=== PATIENT | male | born 1955 | race African-American/Black ===

== ENCOUNTER 2017-11-19 19:10 | Inpatient (IN) | payer OTHER ==
[2017-11-19 20:17] VITALS: BMI 24.3
--- NOTE | 2017-11-19 20:52 | HP ---
CIWA Score - CIWA Score Nausea/Vomitin Muscle Tremors: 5 Anxiety: 3 Agitation: 1-Slight > Activity Paroxysmal Sweats: 3 Orientation: 2-Disoriented Date<2 days Tacttile Disturbances: 1-Very Mild Itch/Numbness Auditory Disturbances: 2-Mild Harshness/Frighten Visual Disturbances: 2-Mild Sensitivity (8/10 headache) Headache: 4-Moderately Severe CIWA-Ar Total Score: 26 Admission ROS S - HPI Chief Complaint: withdrawal symptoms History of Present Illness: 62 yo male with hx of alcohol dependence is here for detox. PMHX: HTN, Depression and Schizophrenia. Currently denies suicidal / homicidal ideation, reports suicide attempt in 2013. Longest period of sobriety 8 years. Last detox [facility] one year ago. Exam Limitations: No Limitations - Ebola screening Have you traveled outside of the country in the last 21 days: No (N) Have you had contact with anyone from an Ebola affected area: No Have you been sick,other than usual withdrawal symptoms: No Do you have a fever: No - Review of Systems Constitutional: Chills, Loss of Appetite, Changes in sleep, Unintentional Wgt. Loss (reports 20 lbs in the past two months) EENT: reports: No Symptoms Reported, Other (wears glasses) Respiratory: reports: No Symptoms reported Cardiac: reports: Lightheadedness GI: reports: Constipated (last BM yesterday), Poor Appetite, Poor Fluid Intake, Abdominal cramping : reports: Urgency Musculoskeletal: reports: No Symptoms Reported Integumentary: reports: No Symptoms Reported Neuro: reports: Seizure (past hx of seizure currently not medicated. Last seizure 8 months ago as well the last time he took medication. Reports seizure are d/t head trauma from falling down the steps as a child.), Dizziness Endocrine: reports: Intolerance to Cold, Change in Weight Hematology: reports: No Symptoms Reported Psychiatric: reports: Orientated x3, Anxious, Depressed, other (see HPI) Other Systems: Reviewed and Negative Patient History - Patient Medical History Hx Anemia: No Hx Asthma: No Hx Chronic Obstructive Pulmonary Disease (COPD): No Hx Cancer: No Hx Cardiac Disorders: Yes (CA three months ago ) Hx Congestive Heart Failure: No Hx Hypertension: Yes (on meds ) Hx Hypercholesterolemia: No Hx Pacemaker: No HX Cerebrovascular Accident: No Hx Seizures: Yes (last sezuire 8 months ago ) Hx Dementia: No Hx Diabetes: No Hx Gastrointestinal Disorders: No Hx Liver Disease: No Hx Genitourinary Disorders: No Hx Sexually Transmitted Disorders: Yes (Gonorrhea and treated ) Hx Renal Disease (ESRD): No Hx Thyroid Disease: No Hx Human Immunodeficiency Virus (HIV): No Hx Hepatitis C: No Hx Depression: Yes Hx Suicide Attempt: Yes (2012) Hx Bipolar Disorder: No Hx Schizophrenia: Yes - Patient Surgical History Past Surgical History: Yes Hx Neurologic Surgery: No Hx Cataract Extraction: No Hx Cardiac Surgery: No Hx Lung Surgery: No Hx Breast Surgery: No Hx Breast Biopsy: No Hx Abdominal Surgery: No Hx Appendectomy: No Hx Cholecystectomy: No Hx Genitourinary Surgery: No Hx Orthopedic Surgery: Yes (blt leg fx repair d/t falling out a window 8 years ago ) Anesthesia Reaction: No - PPD History Previous Implant?: Yes Documented Results: Negative w/o proof PPD to be Administered?: Yes - Reproductive History Patient is a Female of Child Bearing Age (11 -55 yrs old): No - Smoking Cessation Smoking history: Former smoker Have you smoked in the past 12 months: No Aproximately how many cigarettes per day: 0 If you are a former smoker, when did you quit?: quit when 18 yo Hx Chewing Tobacco Use: No Initiated information on smoking cessation: No - Substance & Tx. History Hx Alcohol Use: Yes Hx Substance Use: Yes Substance Use Type: Alcohol Hx Substance Use Treatment: Yes ([facility] 1 year ago ) - Substances Abused Alcohol Route: Oral Frequency: Daily Amount used: 1 case of beer ( 24 beers) / 1 litter of vodka Age of first use: 9 Date of Last Use: 11/19/17 (10AM ) Family Disease History - Family Disease History Family Disease History: Other: Father (dec, alcoholism ), Mother (dec, cocaine / crack abuse ) Admission Physical Exam BHS - Vital Signs Vital Signs: Vital Signs - 24 hr 11/19/17 20:15 Temperature 97.1 F L Pulse Rate 92 H Respiratory 18 Rate Blood Pressure 126/84 - Physical General Appearance: Yes: Disheveled, Mild Distress, Thin, Tremorous, Anxious HEENTM: Yes: Within Normal Limits, EOMI, Hearing grossly Normal, Normal ENT Inspection, Normocephalic, Normal Voice, JOVI, Pharynx Normal, Tm's normal, Other (missing top teeth, poor dentation) Respiratory: Yes: Chest Non-Tender, Lungs Clear, Normal Breath Sounds, No Respiratory Distress, No Accessory Muscle Use Neck: Yes: No masses,lesions,Nodules, Trachea in good position Breast: Yes: Breast Exam Deferred Cardiology: Yes: Regular Rhythm, Regular Rate, S1, S2, Murmur Abdominal: Yes: Normal Bowel Sounds, Non Tender, Soft, Protuberent Genitourinary: Yes: Uregency Back: Yes: Normal Inspection Musculoskeletal: Yes: full range of Motion, Gait Steady, Pelvis Stable Extremities: Yes: Normal Capillary Refill, Normal Range of Motion, Non-Tender, Coldness Neurological: Yes: security compliance engineer II-XII NML intact, Fully Oriented, Motor Strength 5/5, Normal Response, Depressed Affect, Other (anxious) Integumentary: Yes: Dry, Warm, Other (ashen) Lymphatic: Yes: Within Normal Limits - Diagnostic (1) Alcohol dependence with withdrawal Current Visit: Yes Status: Acute Qualifiers: Complication of substance-induced condition: uncomplicated Qualified Code(s ): F10.230 - Alcohol dependence with withdrawal, uncomplicated (2) Essential (primary) hypertension Current Visit: Yes Status: Chronic (3) History of CA (myocardial infarction) Current Visit: Yes Status: Chronic (4) Psychotic disorder Current Visit: Yes Status: Chronic Qualifiers: Psychosis type: unspecified psychosis type Qualified Code(s): F29 - Unspecified psychosis not due to a substance or known physiological condition (5) Anxious mood Current Visit: Yes Status: Acute (6) Dehydration Current Visit: Yes Status: Acute Cleared for Admission [facility] - Detox or Rehab [facility] Level of Care: Medically Managed Detox Regimen/Protocol: Librium [facility] Breath Alcohol Content Breath Alcohol Content: 0.258 Urine Drug Screen - Results Drug Screen Negative: Yes
[2017-11-19] MEDS ORDERED: chlordiazePOXIDE HCL 25 MG CAPSULE PO PRN (21:21)
[2017-11-19] MEDS ORDERED: ACETAMINOPHEN 325 MG TABLET (FP) PO PRN (21:21)
[2017-11-19] MEDS ORDERED: hydrOXYzine PAMOATE 50 MG CAPSULE (FP) PO PRN (21:21)
[2017-11-19] MEDS ORDERED: P-EPHED 60MG/TRIPROLIDI 2.5MG TABLET PO PRN (21:21)
[2017-11-19] MEDS ORDERED: MENTHOL/PHENOL 1 EACH UD MM PRN (21:21)
[2017-11-19] MEDS ORDERED: chlordiazePOXIDE HCL 25 MG CAPSULE PO ONE (21:21)
[2017-11-19] MEDS ORDERED: guaiFENesin/D-METHORPHAN HB 10 ML UNIT-DOSE CUPS PO PRN (21:21)
[2017-11-19] MEDS ORDERED: IBUPROFEN 400 MG TABLET (FP) PO PRN (21:21)
[2017-11-19] MEDS ORDERED: LOPERAMIDE HCL 2 MG CAPSULE PO PRN (21:21)
[2017-11-19] MEDS ORDERED: MAG HYDROX/AL HYDROX/SIMETH 30 ML UNIT-DOSE CUP PO PRN (21:21)
[2017-11-19] MEDS ORDERED: MAGNESIUM CITRATE 300 ML BOTTLE PO PRN (21:21)
[2017-11-19] MEDS ORDERED: MAGNESIUM HYDROX 2400MG/30ML ORAL SUSPENSION 30 ML CUP PO PRN (21:21)
[2017-11-19] MEDS: THIAMINE HCL 100 MG TABLET (FP) PO SCH (22:58)
[2017-11-19] MEDS: chlordiazePOXIDE HCL 25 MG CAPSULE PO SCH (23:03)
[2017-11-19 23:27] LABS: URINE APPEARANCE CLEAR; URINE BILIRUBIN NEGATIVE (NEGATIVE); URINE BLOOD NEGATIVE (NEGATIVE); URINE COLOR LTYELLOW; URINE GLUCOSE (UA) NEGATIVE (NEGATIVE); URINE KETONE NEGATIVE (NEGATIVE); URINE LEUK ESTERASE NEGATIVE (NEGATIVE); URINE NITRITE NEGATIVE (NEGATIVE); URINE PROTEIN NEGATIVE (NEGATIVE); URINE UROBILINOGEN NEGATIVE mg/dL (0.2-1.0)
[2017-11-20] MEDS: chlordiazePOXIDE HCL 25 MG CAPSULE PO SCH ×4 (05:11→22:45)
[2017-11-20] MEDS: PRENATAL VITAMINS W/ FOLIC ACID TABLET (FP) PO SCH (10:10)
[2017-11-20 10:25] LABS: HEMATOCRIT 40.7 % (35.4-49); HEMOGLOBIN 13.5 GM/dL (11.7-16.9); MCH 29.6 pg (25.7-33.7); MEAN CELL VOLUME 89.6 fl (80-96); MEAN PLT VOLUME 9.3 fl (7.5-11.1); PLATELET COUNT 147 K/MM3 (134-434); RBC 4.54 M/mm3 (4.00-5.60); RDW 18.1 % (11.9-15.9); WHITE BLOOD COUNT 4.1 K/mm3 (4.0-10.0)
[2017-11-20 10:33] LABS: ALBUMIN 3.3 g/dl (3.4-5.0); ANION GAP 5 (8-16); BILIRUBIN,TOTAL 1.1 mg/dL (0.2-1.0); BLOOD UREA NITROGEN 8 mg/dL (7-18); CALCIUM 8.2 mg/dL (8.5-10.1); CHLORIDE 106 mmol/L (98-107); CO2 31 mmol/L (21-32); CREATININE 0.8 mg/dL (0.7-1.3); GLUCOSE,RANDOM 82 mg/dL (74-106); POTASSIUM 3.9 mmol/L (3.5-5.1); SGOT/AST 37 U/L (15-37); SGPT/ALT 35 U/L (12-78); SODIUM 142 mmol/L (136-145); TOT PROT 6.6 g/dl (6.4-8.2)
[2017-11-20 10:34] LABS: ALK PHOS 97 U/L (45-117)
--- NOTE | 2017-11-20 10:40 | PN ---
S CIWA - CIWA Score Nausea/Vomitin-Mild Nausea/No Vomiting Muscle Tremors: 4-Moderate,w/Arms Extend Anxiety: 4-Mod. Anxious/Guarded Agitation: 4-Moderately Restless Paroxysmal Sweats: 1-Minimal Palms Moist Orientation: 3-Disoriented Date>2 days Tacttile Disturbances: 1-Very Mild Itch/Numbness Auditory Disturbances: 0-None Visual Disturbances: 0-None Headache: 2-Mild CIWA-Ar Total Score: 20 BHS Progress Note (SOAP) Subjective: sweat tremor anxiety irritable agitation GI upset Objective: 11/20/17 10:39 Vital Signs Temperature 97.9 F 11/20/17 10:02 Pulse Rate 81 11/20/17 10:02 Respiratory Rate 20 11/20/17 10:02 Blood Pressure 132/66 11/20/17 10:02 O2 Sat by Pulse Oximetry (%) Laboratory Last Values WBC 4.1 K/mm3 (4.0-10.0) 11/20/17 07:30 RBC 4.54 M/mm3 (4.00-5.60) 11/20/17 07:30 Hgb 13.5 GM/dL (11.7-16.9) 11/20/17 07:30 Hct 40.7 % (35.4-49) 11/20/17 07:30 MCV 89.6 fl (80-96) 11/20/17 07:30 MCH 29.6 pg (25.7-33.7) 11/20/17 07:30 MCHC 33.0 g/dl (32.0-35.9) 11/20/17 07:30 RDW 18.1 % (11.9-15.9) H 11/20/17 07:30 Plt Count 147 K/MM3 (134-434) 11/20/17 07:30 MPV 9.3 fl (7.5-11.1) 11/20/17 07:30 Urine Color Ltyellow 11/19/17 22:00 Urine Appearance Clear 11/19/17 22:00 Urine pH 5.0 (5.0-8.0) 11/19/17 22:00 Ur Specific [place] 1.010 (1.001-1.035) 11/19/17 22:00 Urine Protein Negative (NEGATIVE) 11/19/17 22:00 Urine Glucose (UA) Negative (NEGATIVE) 11/19/17 22:00 Urine Ketones Negative (NEGATIVE) 11/19/17 22:00 Urine Blood Negative (NEGATIVE) 11/19/17 22:00 Urine Nitrite Negative (NEGATIVE) 11/19/17 22:00 Urine Bilirubin Negative (NEGATIVE) 11/19/17 22:00 Urine Urobilinogen Negative mg/dL (0.2-1.0) 11/19/17 22:00 Ur Leukocyte Esterase Negative (NEGATIVE) 11/19/17 22:00 lab noted Assessment: 11/20/17 10:39 withdrawal sx Plan: continue detox
--- NOTE | 2017-11-20 10:55 | EKG ---
Test Reason : Blood Pressure : / mmHG Vent. Rate : 079 BPM Atrial Rate : 079 BPM P-R Int : 160 ms QRS Dur : 086 ms QT Int : 380 ms P-R-T Axes : 072 -08 056 degrees QTc Int : 435 ms NORMAL SINUS RHYTHM NORMAL ECG NO PREVIOUS ECGS AVAILABLE Confirmed by HANY IYER, PEREZ ([id number]) on 11/20/2017 10:54:51 AM Referred By: Confirmed By:PEREZ LEACH MD
[2017-11-20] MEDS: levETIRAcetam 500 MG TABLET (FP) PO SCH ×2 (11:19→22:44)
[2017-11-20 11:23] LABS: SICKLE CELL SCREEN POSITIVE (NEGATIVE)
--- NOTE | 2017-11-20 11:45 | CONSULT ---
[facility] Psychiatric Consult - Data Date of interview: 11/20/17 Admission source: [facility] Identifying data: This is 62 years old male with psychiatric hospitalization history inmtoxicated with: Alcohol Substance Abuse History: - Smoking Cessation. Smoking history: Former smoker. Have you smoked in the past 12 months: No. Aproximately how many cigarettes per day: 0. If you are a former smoker, when did you quit?: quit when 18 yo. Hx Chewing Tobacco Use: No. Initiated information on smoking cessation: No. - Substance & Tx. History. Hx Alcohol Use: Yes. Hx Substance Use: Yes. Substance Use Type: Alcohol. Hx Substance Use Treatment: Yes ([facility] 1 year ago ). - Substances Abused. Alcohol. Route: Oral. Frequency: Daily. Amount used: 1 case of beer ( 24 beers) / 1 litter of vodka. Age of first use : 9. Date of Last Use: 11/19/17 (10AM ) Medical History: HTN, Hisotry of [place] Psychiatric History: Patient reports history of depression and anxiety, reports taking prior to admission: Zoloft 100mg poqd. Seroquel 100mg po qhs Physical/Sexual Abuse/Trauma History: Denies Additional Comment: Zoloft 100mg poqd. Seroquel 100mg po qhs Mental Status Exam - Mental Status Exam Alert and Oriented to: Person Cognitive Function: Fair Patient Appearance: Unkempt Mood: Apprehensive Affect: Mood Congruent Patient Behavior: Cooperative Speech Pattern: Delayed Voice Loudness: Normal Thought Process: Goal Oriented Thought Disorder: Being Controlled Hallucinations: Denies Suicidal Ideation: Denies Homicidal Ideation: Denies Insight/Judgement: Fair Sleep: Difficulty falling asleep Appetite: Fair Muscle strength/Tone: Mild Hypotonicity Gait/Station: Normal Additional Comments: Zoloft 100mg poqd. Seroquel 100mg po qhs Psychiatric Findings - Problem List ([place] 1, 2,3) (1) Alcohol-induced mood disorder Current Visit: Yes Status: Acute (2) Alcohol dependence with withdrawal Current Visit: Yes Status: Acute Qualifiers: Complication of substance-induced condition: uncomplicated Qualified Code(s ): F10.230 - Alcohol dependence with withdrawal, uncomplicated - Initial Treatment Plan Initial Treatment Plan: Zoloft 100mg poqd. Seroquel 100mg po qhs
[2017-11-20] MEDS: SERTRALINE HCL 50 MG TABLET (FP) PO SCH (14:45)
[2017-11-20] MEDS: RANITIDINE HCL 150 MG TABLET (FP) PO SCH (22:44)
[2017-11-20] MEDS: QUEtiapine FUMARATE 100 MG TABLET (FP) PO SCH (22:44)
[2017-11-20] MEDS: THIAMINE HCL 100 MG TABLET (FP) PO SCH (22:44)
[2017-11-21] MEDS: chlordiazePOXIDE HCL 25 MG CAPSULE PO SCH ×3 (05:10→17:15)
[2017-11-21] MEDS: RANITIDINE HCL 150 MG TABLET (FP) PO SCH ×2 (10:09→22:32)
[2017-11-21] MEDS: levETIRAcetam 500 MG TABLET (FP) PO SCH ×2 (10:09→22:33)
[2017-11-21] MEDS: SERTRALINE HCL 50 MG TABLET (FP) PO SCH (10:09)
[2017-11-21] MEDS: NIFEdipine E.R. 30 MG TABLET (FP) PO SCH (10:10)
[2017-11-21] MEDS: PRENATAL VITAMINS W/ FOLIC ACID TABLET (FP) PO SCH (10:10)
--- NOTE | 2017-11-21 10:41 | PN ---
[facility] CIWA - CIWA Score Nausea/Vomitin-Mild Nausea/No Vomiting Muscle Tremors: 4-Moderate,w/Arms Extend Anxiety: 4-Mod. Anxious/Guarded Agitation: 4-Moderately Restless Paroxysmal Sweats: 1-Minimal Palms Moist Orientation: 0-Oriented Tacttile Disturbances: 0-None Auditory Disturbances: 0-None Visual Disturbances: 0-None Headache: 0-None Present CIWA-Ar Total Score: 14 BHS Progress Note (SOAP) Subjective: sweat tremor anxiety irritable Objective: 11/21/17 10:40 Vital Signs Temperature 97.2 F L 11/21/17 10:13 Pulse Rate 97 H 11/21/17 10:13 Respiratory Rate 16 11/21/17 10:13 Blood Pressure 128/66 11/21/17 10:13 O2 Sat by Pulse Oximetry (%) Laboratory Last Values WBC 4.1 K/mm3 (4.0-10.0) 11/20/17 07:30 RBC 4.54 M/mm3 (4.00-5.60) 11/20/17 07:30 Hgb 13.5 GM/dL (11.7-16.9) 11/20/17 07:30 Hct 40.7 % (35.4-49) 11/20/17 07:30 MCV 89.6 fl (80-96) 11/20/17 07:30 MCH 29.6 pg (25.7-33.7) 11/20/17 07:30 MCHC 33.0 g/dl (32.0-35.9) 11/20/17 07:30 RDW 18.1 % (11.9-15.9) H 11/20/17 07:30 Plt Count 147 K/MM3 (134-434) 11/20/17 07:30 MPV 9.3 fl (7.5-11.1) 11/20/17 07:30 Sickle Cell Screen Positive (NEGATIVE) 11/20/17 07:30 Sodium 142 mmol/L (136-145) 11/20/17 07:30 Potassium 3.9 mmol/L (3.5-5.1) 11/20/17 07:30 Chloride 106 mmol/L (98-107) 11/20/17 07:30 Carbon Dioxide 31 mmol/L (21-32) 02/07/18 07:30 Anion Gap 5 (8-16) L 11/20/17 07:30 BUN 8 mg/dL (7-18) 11/20/17 07:30 Creatinine 0.8 mg/dL (0.7-1.3) 11/20/17 07:30 Creat Clearance w eGFR > 60 (>60) 11/20/17 07:30 Random Glucose 82 mg/dL (74-106) 11/20/17 07:30 Calcium 8.2 mg/dL (8.5-10.1) L 11/20/17 07:30 Total Bilirubin 1.1 mg/dL (0.2-1.0) H 11/20/17 07:30 AST 37 U/L (15-37) 11/20/17 07:30 ALT 35 U/L (12-78) 11/20/17 07:30 Alkaline Phosphatase 97 U/L (45-117) 11/20/17 07:30 Total Protein 6.6 g/dl (6.4-8.2) 11/20/17 07:30 Albumin 3.3 g/dl (3.4-5.0) L 11/20/17 07:30 Urine Color Ltyellow 11/19/17 22:00 Urine Appearance Clear 11/19/17 22:00 Urine pH 5.0 (5.0-8.0) 11/19/17 22:00 Ur Specific [place] 1.010 (1.001-1.035) 11/19/17 22:00 Urine Protein Negative (NEGATIVE) 11/19/17 22:00 Urine Glucose (UA) Negative (NEGATIVE) 11/19/17 22:00 Urine Ketones Negative (NEGATIVE) 11/19/17 22:00 Urine Blood Negative (NEGATIVE) 11/19/17 22:00 Urine Nitrite Negative (NEGATIVE) 11/19/17 22:00 Urine Bilirubin Negative (NEGATIVE) 11/19/17 22:00 Urine Urobilinogen Negative mg/dL (0.2-1.0) 11/19/17 22:00 Ur Leukocyte Esterase Negative (NEGATIVE) 11/19/17 22:00 RPR Titer Nonreactive (NONREACTIVE) 11/20/17 07:30 Hepatitis C Antibody 0.2 s/co ratio (0.0-0.9) 11/19/17 07:30 HIV 1&2 Antibody Screen Negative 11/19/17 07:30 HIV P24 Antigen Negative 11/19/17 07:30 lab noted Assessment: 11/21/17 10:40 withdrawal sx Plan: continue detox
[2017-11-21] MEDS: THIAMINE HCL 100 MG TABLET (FP) PO SCH (22:31)
[2017-11-21] MEDS: chlordiazePOXIDE 5 MG CAPSULE PO SCH (22:32)
[2017-11-21] MEDS: QUEtiapine FUMARATE 100 MG TABLET (FP) PO SCH (22:33)
[2017-11-22] MEDS: chlordiazePOXIDE 5 MG CAPSULE PO SCH ×3 (07:12→17:17)
--- NOTE | 2017-11-22 10:00 | PN ---
[facility] Progress Note (SOAP) Subjective: irritable sweats Objective: 11/22/17 09:52 Vital Signs Temperature 98.6 F 11/22/17 06:07 Pulse Rate 67 11/22/17 06:07 Respiratory Rate 16 11/22/17 06:07 Blood Pressure 116/66 11/22/17 06:07 O2 Sat by Pulse Oximetry (%) aaox3 ambulating no acute distress Assessment: 11/22/17 10:00 mild withdrawal sx Plan: continue detox increase fluids d/c in am
[2017-11-22] MEDS: PRENATAL VITAMINS W/ FOLIC ACID TABLET (FP) PO SCH (11:51)
[2017-11-22] MEDS: SERTRALINE HCL 50 MG TABLET (FP) PO SCH (11:51)
[2017-11-22] MEDS: RANITIDINE HCL 150 MG TABLET (FP) PO SCH ×2 (11:51→23:17)
[2017-11-22] MEDS: levETIRAcetam 500 MG TABLET (FP) PO SCH ×2 (11:51→23:16)
[2017-11-22] MEDS: NIFEdipine E.R. 30 MG TABLET (FP) PO SCH (11:52)
[2017-11-22] MEDS: LACTULOSE 20 GM/30 ML UDC (FOR ORAL USE ONLY) PO SCH ×2 (14:40→23:18)
[2017-11-22] MEDS: THIAMINE HCL 100 MG TABLET (FP) PO SCH (23:16)
[2017-11-22] MEDS: QUEtiapine FUMARATE 100 MG TABLET (FP) PO SCH (23:17)
[2017-11-22] MEDS: chlordiazePOXIDE HCL 10 MG CAPSULE PO SCH (23:17)
[2017-11-23 04:59] LABS: HGB SOLUBILITY Positive (Negative); Hgb A 58.2 % (96.4-98.8); Hgb C 0 % (0.0); Hgb F 0 % (0.0-2.0); Hgb S 37.7 % (0.0)
[2017-11-23] MEDS: chlordiazePOXIDE HCL 10 MG CAPSULE PO SCH (07:01)
[2017-11-23] MEDS: LACTULOSE 20 GM/30 ML UDC (FOR ORAL USE ONLY) PO SCH (07:11)
--- NOTE | 2017-11-23 09:12 | DS ---
[facility] Detox Discharge Summary Admission Date: 11/19/17 Discharge Date: 11/23/17 - History Pertinent Past History: seizures - Physical Exam Results Vital Signs: Vital Signs Temperature 97.8 F 11/23/17 06:00 Pulse Rate 67 11/23/17 06:00 Respiratory Rate 18 11/23/17 06:00 Blood Pressure 100/57 11/23/17 06:00 O2 Sat by Pulse Oximetry (%) Pertinent Admission Physical Exam Findings: withdrawal sx - Treatment Hospital Course: Detox Protocol Followed, Detoxed Safely, Responded well, Discharged Condition Good, Rehab Referral Accepted Patient has Accepted a Rehab Referral to: O/P AA meetings - Medication Discharge Medications: Ambulatory Orders Nifedipine ER [Procardia Xl -] 30 mg PO DAILY 11/20/17 Quetiapine Fumarate [Seroquel] 100 mg PO HS #30 tablet 11/20/17 Sertraline HCl [Zoloft -] 100 mg PO DAILY #30 tablet 11/20/17 levETIRAcetam [Keppra -] 500 mg PO BID 30 Days #60 tablet 11/23/17 - Diagnosis (1) Alcohol dependence with withdrawal Current Visit: Yes Status: Acute Qualifiers: Complication of substance-induced condition: uncomplicated Qualified Code(s ): F10.230 - Alcohol dependence with withdrawal, uncomplicated (2) Essential (primary) hypertension Current Visit: Yes Status: Chronic - AMA Did Patient Leave Against Medical Advice: No
[2017-11-23 11:09] VITALS: BP 116/72; PULSE 75; TEMP 97.3
== END 2017-11-23 10:31 | disposition home or self-care (01) | DRG 775 ==
LOC: YASAS 19:10 → Y6N 21:33
PROVIDERS: ADMIT Internal Medicine; ATTEND Internal Medicine
PROC: HZ2ZZZZ Detoxification Services for Substance Abuse Treatment (ICD-10-PCS; principal; 2017-11-19)
DX: F10.230 Alcohol dependence with withdrawal, uncomplicated (principal); F10.24 Alcohol dependence with alcohol-induced mood disorder; F29 Unspecified psychosis not due to a substance or known physiological condition; F41.9 Anxiety disorder, unspecified; I10 Essential (primary) hypertension; I25.2 Old myocardial infarction; E86.0 Dehydration; R01.1 Cardiac murmur, unspecified; Z86.69 Personal history of other diseases of the nervous system and sense organs; Z87.438 Personal history of other diseases of male genital organs; Z87.891 Personal history of nicotine dependence; Z91.5 Personal history of self-harm
CPT/HCPCS: 36415; 80053; 81003; 82140; 83021; 85027; 85660; 86593; 86803; 87389; 93005; 93010